=== PATIENT | female | born 1990 | race Caucasian/White ===

== ENCOUNTER → 2017-10-02 | Outpatient (CLI) | payer OTHER ==
[~2017-10-02] MED LIST: ASHLYNA 0.15-01 EACH PO; DIPH50 PO; Excedrin Extra1 EACH PO; NAPR500 PO; Naprosyn500 MG PO; Norco 10-325 T1 EACH PO; Norco 5-325 Ta1 EACH PO; PROM25 PO
== END | disposition home or self-care (01) ==
LOC: LAB 16:14
DX: R10.2 Pelvic and perineal pain (principal)
CPT/HCPCS: 87070; 87205

== ENCOUNTER 2017-10-11 08:32 | Emergency (ER) | payer OTHER ==
[~2017-10-11] VITALS: Ht 177.8 cm; Wt 56.2 kg
[2017-10-11] MEDS ORDERED: ASHLYNA 0.15-01 EACH PO (08:53)
[2018-04-02] MEDS ORDERED: NAPR500 PO (10:42)
[2018-04-02] MEDS ORDERED: DIPH50 PO (10:42)
[2018-04-02] MEDS ORDERED: Excedrin Extra1 EACH PO (10:42)
[2018-04-02] MEDS ORDERED: Naprosyn500 MG PO (15:06)
== END 2017-10-11 18:13 | disposition short-term general hospital (02) ==
LOC: ER 08:32
DX: T85.09XA Other mechanical complication of ventricular intracranial (communicating) shunt, initial encounter (principal); Z79.899 Other long term (current) drug therapy
CPT/HCPCS: 36415; 70450; 75809; 96374; 96375; 96376; 99285; J1200; J1885; J2765

== ENCOUNTER 2018-05-21 16:25 | Emergency (ER) | payer OTHER ==
[~2018-05-21] VITALS: Ht 177.8 cm; Wt 58.1 kg
[~2018-05-21 16:25] MED LIST changes: -Norco 10-325 T1 EACH PO; -Norco 5-325 Ta1 EACH PO; -PROM25 PO
[2018-05-21] MEDS ORDERED: Norco 5-325 Ta1 EACH PO (20:19)
== END 2018-05-21 20:25 | disposition home or self-care (01) ==
LOC: ER 16:25
DX: R51 Headache (principal); F17.200 Nicotine dependence, unspecified, uncomplicated; Z91.012 Allergy to eggs; Z98.2 Presence of cerebrospinal fluid drainage device
CPT/HCPCS: 70450; 99283-25

== ENCOUNTER 2018-07-16 12:55 | Emergency (ER) | payer OTHER ==
[~2018-07-16] VITALS: Ht 177.8 cm; Wt 59.0 kg
[~2018-07-16 12:55] MED LIST changes: +Norco 5-325 Ta1 EACH PO
[2018-07-16] MEDS ORDERED: PROM25 PO (13:21)
[2018-07-16 14:49] LABS: BASOPHILS ABSOLUTE AUTO 0.02 K/mm3 (0.00-0.23); BASOPHILS PERCENT AUTO 0 % (0-2); EOSINOPHILS ABSOLUTE AUTO 0.12 K/mm3 (0.00-0.68); EOSINOPHILS PERCENT AUTO 2 % (0-6); Hematocrit 40.1 % (33.0-51.0); Hemoglobin 13.1 g/dL (11.5-16.0); IMMATURE GRAN ABSOLUTE AUTO 0.01 K/mm3 (0.00-0.10); IMMATURE GRAN PERCENT AUTO 0 % (0-1); LYMPHOCYTES ABSOLUTE AUTO 1.57 K/mm3 (0.84-5.20); LYMPHOCYTES PERCENT AUTO 24 % (21-46); MONOCYTES ABSOLUTE AUTO 0.35 K/mm3 (0.16-1.47); MONOCYTES PERCENT AUTO 5 % (4-13); Mean Corpuscular HGB 30.6 pg (26.0-34.0); Mean Corpuscular HGB Conc 32.7 g/dL (31.5-36.5); Mean Corpuscular Volume 94 fL (80-100); Mean Platelet Volume 11.1 fL (9.1-12.4); NEUTROPHILS ABSOLUTE AUTO 4.62 K/mm3 (1.96-9.15); NEUTROPHILS PERCENT AUTO 69 % (41-73); Platelet Count 257 K/mm3 (150-400); RDW Coefficient Variation 13.7 % (11.7-14.2); RDW Standard Deviation 47.1 fL (35.1-46.3); Red Blood Cell Count 4.28 M/mm3 (3.80-5.20); White Blood Cell Count 6.69 K/mm3 (4.00-11.30)
[2018-07-16 15:07] LABS: Beta HCG, Quantitative, Serum <1 mIU/mL (0-3)
[2018-07-16 15:09] LABS: Alanine Aminotransfer (ALT/SGP 21 U/L (12-78); Albumin/Globulin Ratio 1.1 (0.8-1.8); Alk Phos 53 U/L (50-136); Anion Gap 7 mmol/L (6-16); Aspartate Aminotrans (AST/SGOT 15 U/L (12-37); Bilirubin, Total 0.2 mg/dL (0.1-1.0); Blood Urea Nitrogen 9 mg/dL (8-24); Bun/Creatinine Ratio 11.5 (12.0-20.0); CO2, Blood 26 mmol/L (21-32); Calcium, Blood 8.8 mg/dL (8.5-10.1); Chloride, Blood 112 mmol/L (98-108); Creatinine, Blood 0.78 mg/dL (0.40-1.00); Globulin, Blood 3.8 g/dL (2.2-4.0); Glomerular Filtration Rate >60 (60-); Glucose, Blood 94 mg/dL (70-99); Potassium, Blood 4.1 mmol/L (3.5-5.5); Sodium, Blood 145 mmol/L (136-145); Total Protein, Blood 7.8 g/dL (6.4-8.2)
[2018-07-16] MEDS ORDERED: Norco 10-325 T1 EACH PO (16:14)
== END 2018-07-16 16:35 | disposition home or self-care (01) ==
LOC: ER 12:55
PROVIDERS: Emergency Medicine
DX: R51 Headache (principal); Q03.9 Congenital hydrocephalus, unspecified; Z98.2 Presence of cerebrospinal fluid drainage device; F17.200 Nicotine dependence, unspecified, uncomplicated; Z91.012 Allergy to eggs
CPT/HCPCS: 36415; 70250; 70450; 71045; 74018; 80053; 84702; 85025; 99284-25

== ENCOUNTER 2019-03-08 09:50 | Emergency (ER) | payer OTHER ==
[~2019-03-08] VITALS: Ht 182.9 cm; Wt 59.0 kg
[~2019-03-08 09:50] MED LIST changes: +Norco 10-325 T1 EACH PO; +ONDA4ODT MM; +PROM25 PO; +Percocet 10-321 EACH PO; +SETLAKIN 0.151 EAC1 PO; +TOPIRAMATE ER100 MG PO
[2019-03-08 12:58] LABS: Source, Urine Clean Catch
[2019-03-08 13:02] LABS: Bilirubin, Urine Neg (Neg); Blood, Urine 4+ (Neg); Glucose Qualitative, Urine Neg (Neg); Ketones, Urine Neg (Neg); Leukocyte Esterase, Urine Neg (Neg); Nitrite, Urine Neg (Neg); Protein, Urine Neg (Neg); Urobilinogen, Urine NORM (Normal)
[2019-03-08 13:57] LABS: BASOPHILS ABSOLUTE AUTO 0.02 K/mm3 (0.00-0.23); BASOPHILS PERCENT AUTO 0 % (0-2); EOSINOPHILS ABSOLUTE AUTO 0.06 K/mm3 (0.00-0.68); EOSINOPHILS PERCENT AUTO 1 % (0-6); Hemoglobin 13.8 g/dL (11.5-16.0); IMMATURE GRAN ABSOLUTE AUTO 0.02 K/mm3 (0.00-0.10); IMMATURE GRAN PERCENT AUTO 0 % (0-1); LYMPHOCYTES ABSOLUTE AUTO 1.83 K/mm3 (0.84-5.20); LYMPHOCYTES PERCENT AUTO 25 % (21-46); MONOCYTES ABSOLUTE AUTO 0.32 K/mm3 (0.16-1.47); MONOCYTES PERCENT AUTO 4 % (4-13); Mean Corpuscular HGB 30.7 pg (26.0-34.0); Mean Corpuscular HGB Conc 32.9 g/dL (31.5-36.5); Mean Corpuscular Volume 93 fL (80-100); Mean Platelet Volume 10.5 fL (9.1-12.4); NEUTROPHILS ABSOLUTE AUTO 4.97 K/mm3 (1.96-9.15); NEUTROPHILS PERCENT AUTO 69 % (41-73); Platelet Count 217 K/mm3 (150-400); RDW Coefficient Variation 13.8 % (11.7-14.2); RDW Standard Deviation 47.1 fL (35.1-46.3); White Blood Cell Count 7.22 K/mm3 (4.00-11.30)
[2019-03-08 14:21] LABS: Alanine Aminotransfer (ALT/SGP 30 U/L (12-78); Albumin, Blood 3.9 g/dL (3.4-5.0); Albumin/Globulin Ratio 1.1 (0.8-1.8); Alk Phos 53 U/L (50-136); Anion Gap 5 mmol/L (6-16); Aspartate Aminotrans (AST/SGOT 20 U/L (12-37); Bilirubin, Total 0.4 mg/dL (0.1-1.0); Blood Urea Nitrogen 12 mg/dL (8-24); Bun/Creatinine Ratio 17.7 (12.0-20.0); CO2, Blood 26 mmol/L (21-32); Calcium, Blood 8.8 mg/dL (8.5-10.1); Chloride, Blood 110 mmol/L (98-108); Creatinine, Blood 0.68 mg/dL (0.40-1.00); Globulin, Blood 3.6 g/dL (2.2-4.0); Glomerular Filtration Rate >60 (60-); Glucose, Blood 86 mg/dL (70-99); Potassium, Blood 4.4 mmol/L (3.5-5.5); Sodium, Blood 141 mmol/L (136-145); Total Protein, Blood 7.5 g/dL (6.4-8.2)
[2019-03-08 14:44] LABS: Appearance, Urine Clear (Clear); Color, Urine Pale Yellow (P-Yellow)
[2019-03-08 14:45] LABS: Bacteria Few /hpf; Red Blood Cells, Urine 0-2 /hpf (0-2); Squamous Epithelial Cells Few /hpf (Few); White Blood Cells, Urine 0-2 /hpf (0-5)
[2019-03-08] MEDS ORDERED: ONDA4ODT MM (15:27)
== END 2019-03-08 15:43 | disposition home or self-care (01) ==
LOC: ER 09:50
PROVIDERS: Emergency Medicine
DX: H53.149 Visual discomfort, unspecified (principal); R51 Headache; R11.0 Nausea; Z91.012 Allergy to eggs; Z79.899 Other long term (current) drug therapy; Z72.0 Tobacco use
CPT/HCPCS: 70250; 71045; 74018; 80053; 81001; 81025; 85025; 87086; 99284-25

== ENCOUNTER 2019-06-17 10:47 | Emergency (ER) | payer OTHER ==
[~2019-06-17] VITALS: Ht 182.9 cm; Wt 56.7 kg
[2019-06-17] MEDS ORDERED: PROM25 PO (15:50)
[2019-06-17] MEDS ORDERED: HYDR1TAB94 PO (17:14)
== END 2019-06-17 17:20 | disposition home or self-care (01) ==
LOC: ER 10:47
DX: T82.848A Pain due to vascular prosthetic devices, implants and grafts, initial encounter (principal); R51 Headache; Z91.012 Allergy to eggs; F17.210 Nicotine dependence, cigarettes, uncomplicated
CPT/HCPCS: 70250; 70450; 71045; 74018; 96372; 99284-25; J0780; J1200; J1885

== ENCOUNTER 2019-10-06 14:42 | Emergency (ER) | payer OTHER ==
[~2019-10-06] VITALS: Ht 182.9 cm; Wt 56.7 kg
[~2019-10-06 14:42] MED LIST changes: +HYDR1TAB94 PO
[2019-10-06] MEDS ORDERED: GABA300 PO (17:33)
[2019-10-06] MEDS ORDERED: POTA8 PO (17:33)
[2019-10-06] MEDS ORDERED: DULO30 PO (17:34)
== END 2019-10-06 18:11 | disposition home or self-care (01) ==
LOC: ER 14:42
DX: R51 Headache (principal); Z98.2 Presence of cerebrospinal fluid drainage device; Z91.012 Allergy to eggs
CPT/HCPCS: 70250; 71045; 74018; 96372; 99284-25; J1885